=== PATIENT | male | born 1985 | race Caucasian/White ===

== ENCOUNTER 2017-12-11 00:27 | Emergency (ER) | payer BC ==
[~2017-12-11] VITALS: Ht 177.8 cm; Wt 81.6 kg
[2017-12-11 00:36] VITALS: BP_SYST 136
[2017-12-11] MEDS ORDERED: CLINDAMYCIN 900 mg/50mL D5W 50 ML IV ONE (01:00)
[2017-12-11] MEDS ORDERED: KETOROLAC TROMETHAMINE 15 MG VIAL IVP ONE (01:00)
[2017-12-11] MEDS ORDERED: SULFAMETHOXAZOLE/TRIMETHOPR DS 1 TABLET PO ONE (01:00)
[2017-12-11] MEDS ORDERED: DIPH-TET-PERTUS Vaccine 0.5 ML VIAL (ADACEL) I.M. ONE (01:15)
[2017-12-11 02:20] VITALS: BP_SYST 131
== END 2017-12-11 02:20 | disposition home or self-care (01) ==
LOC: SED 00:27
DX: L03.113 Cellulitis of right upper limb (principal); R03.0 Elevated blood-pressure reading, without diagnosis of hypertension; M86.9 Osteomyelitis, unspecified
CPT/HCPCS: 90471; 90715; 96365; 96375; 99284; J1885; J3490

== ENCOUNTER 2018-03-10 00:24 | Emergency (ER) | payer SELFPAY ==
[~2018-03-10] VITALS: Ht 177.8 cm; Wt 79.4 kg
[2018-03-10 00:36] VITALS: BP_SYST 141
[2018-03-10] MEDS ORDERED: IPRATROPIUM BROM 0.5 MG/2.5 ML VIAL.NEB (ATROVENT) IH ONE (01:00)
[2018-03-10] MEDS ORDERED: SULFAMETHOXAZOLE/TRIMETHOPR DS 1 TABLET PO ONE (01:00)
[2018-03-10] MEDS ORDERED: PREDNISONE 20 MG TABLET PO ONE (01:00)
[2018-03-10] MEDS ORDERED: LevALBUTEROL HCL 1.25 MG/0.5 ML *CONC.* VIAL.NEB (XOPENEX CONC.) INH ONE (01:00)
[2018-03-10 01:50] VITALS: BP_SYST 133
== END 2018-03-10 01:50 | disposition home or self-care (01) ==
LOC: SED 00:24
DX: J98.01 Acute bronchospasm (principal); J40 Bronchitis, not specified as acute or chronic; L98.498 Non-pressure chronic ulcer of skin of other sites with other specified severity; Z96.649 Presence of unspecified artificial hip joint
CPT/HCPCS: 94640; 99283; J7512; J7612

== ENCOUNTER 2023-09-25 20:23 | Emergency (ER) | payer MEDICAID ==
[~2023-09-25] VITALS: Ht 175.3 cm; Wt 83.9 kg
[2023-09-25 20:45] VITALS: BP_SYST 150; PULSE 105; RESP 18; TEMP 97.3; O2SAT 96
[2023-09-25] MEDS ORDERED: ceFAZolin SODIUM 2 GM VIAL IM ONE (22:45)
[2023-09-25] MEDS ORDERED: SULF1TAB48 PO (22:56)
[2023-09-25] MEDS ORDERED: cefTRIAXone 1 GM in LIDOCAINE 1%, 20 ML MDV 2.1 ML IM ONE (23:00)
[2023-09-25] MEDS ORDERED: CHLO118L TP (23:19)
[2023-09-25 23:25] VITALS: BP_SYST 150; PULSE 105; RESP 18; TEMP 97.3; O2SAT 96
== END 2023-09-25 23:25 | disposition home or self-care (01) ==
LOC: SED 20:23
DX: L03.115 Cellulitis of right lower limb (principal); L03.114 Cellulitis of left upper limb; Z79.899 Other long term (current) drug therapy
CPT/HCPCS: 99283; 96372; J0696; J2001